=== PATIENT | female | born 1955 ===

== ENCOUNTER 2018-05-01 14:18 | Emergency (ER) | payer MEDICARE, OTHER ==
[~2018-05-01] VITALS: Ht 160 cm; Wt 54.4 kg
[2018-05-01 16:02] LABS: Basophils # (auto) 0.1 uL; Eosinophils # (auto) 0.3 uL; Eosinophils % (auto) 3.2 % (0.0-7.0); Hematocrit 48.6 % (36.0-46.0); Hemoglobin 16.3 g/dL (12.2-16.2); Lymphocytes # (auto) 1.5 uL; Mean Corpuscular Hemoglobin 32.8 pg (28.0-32.0); Mean Corpuscular Hgb Conc. 33.5 g/dL (32.0-36.0); Mean Corpuscular Volume 97.8 fL (80.0-100.0); Monocytes # (auto) 0.8 uL; Monocytes % (auto) 9.1 % (0.0-12.0); Neutrophils % (auto) 69.7 % (37.0-80.0); Nucleated Red Blood Cells % 0.1 %; Platelet Count (auto) 388 10^3/uL (140-450); Red Blood Cells 4.97 10^6/uL (4.0-5.20); Red Cell Distribution Width 12.8 % (11.8-14.3); White Blood Cell 8.6 10^3/uL (4.4-10.8)
[2018-05-01 16:20] LABS: Alanine Aminotransferase 26 U/L (13-56); Albumin 4.1 g/dL (3.4-5.0); Anion Gap 12 (5-15); Aspartate Aminotransferase 24 U/L (15-37); BUN/Creatinine Ratio 14.7; Blood Urea Nitrogen 10 mg/dL (7-18); Calcium 9.4 mg/dL (8.5-10.1); Carbon Dioxide 26 mmol/L (21-32); Chloride 103 mmol/L (98-107); GFR African American 112 mL/min; GFR Non-African American 93 mL/min; Glucose 85 mg/dL (74-106); Potassium 4.2 mmol/L (3.5-5.1); Sodium 141 mmol/L (136-145)
[2018-05-01 16:25] LABS: Alkaline Phosphatase 139 U/L (45-117); Bilirubin, Total 0.7 mg/dL (0.2-1.0); Total Protein 8.6 g/dL (6.4-8.2)
[2018-05-01] MEDS ORDERED: methylPREDNISolone SOD SUCC 125 MG/2 ML VL IM ONE (18:15)
[2018-05-01] MEDS ORDERED: IPRATROPIUM BROM 0.5 MG/2.5ML INH SOL HHN ONE (18:15)
[2018-05-01] MEDS ORDERED: ALBUTEROL SULF 2.5 MG/0.5ML(0.5%) NEB SOLN HHN ONE (18:15)
[2018-05-01 20:25] VITALS: BP 135/87
== END 2018-05-01 20:29 | disposition home or self-care (01) ==
LOC: ER 14:18
DX: J44.9 Chronic obstructive pulmonary disease, unspecified (principal); F17.210 Nicotine dependence, cigarettes, uncomplicated
CPT/HCPCS: 36415; 71046; 80053; 84484; 85025; 93005; 94640; 96372; 99285; J2930; J7611; J7644